=== PATIENT | female | born 1985 | race Caucasian/White ===

== ENCOUNTER 2016-09-29 16:45 | Emergency (ER) | payer OTHER ==
[~2016-09-29] VITALS: Ht 160 cm; Wt 95.3 kg
[~2016-09-29 16:45] MED LIST: CYMBALTA60 MG PO; ENDOCET 5-3251 EACH PO; IBUPROFEN800 MG PO; KEFLEX500 MG PO; MACROBID100 MG PO; NOHOMEMEDS; PRENATABS FA T1 EACH PO; TRAZODONE HCL100 MG PO; ZOLOFT25 MG PO
[2016-09-29] MEDS ORDERED: TAMIFLU75 MG PO (17:54)
[2016-09-29] MEDS ORDERED: AMOXICILLIN875 MG PO (17:54)
[2016-09-29] MEDS ORDERED: IBUPROFEN200 M1 PO (17:55)
[2016-09-29] MEDS ORDERED: MOTRIN800 MG PO (18:20)
[2016-09-29] MEDS ORDERED: FIORICET 50-301 EACH PO (18:20)
[2016-09-29 18:30] VITALS: BP 138/96
[2016-09-30] MEDS ORDERED: FLEXERIL10 MG PO (12:54)
[2016-09-30] MEDS ORDERED: TRAMADOL HCL50 MG PO (12:54)
[2016-09-30] MEDS ORDERED: NAPROSYN500 MG PO (12:54)
== END 2016-09-29 18:31 | disposition home or self-care (01) ==
LOC: EME 16:45
DX: G44.209 Tension-type headache, unspecified, not intractable (principal); J45.909 Unspecified asthma, uncomplicated
CPT/HCPCS: 99281; 99283; J1885

== ENCOUNTER 2016-09-30 09:32 | Emergency (ER) | payer OTHER ==
[~2016-09-30] VITALS: Ht 160 cm; Wt 95.6 kg
[~2016-09-30 09:32] MED LIST changes: +AMOXICILLIN875 MG PO; +FIORICET 50-301 EACH PO; +IBUPROFEN200 M1 PO; +MOTRIN800 MG PO; +TAMIFLU75 MG PO
[2016-09-30] MEDS ORDERED: NAPROSYN500 MG PO (12:54)
[2016-09-30] MEDS ORDERED: TRAMADOL HCL50 MG PO (12:54)
[2016-09-30] MEDS ORDERED: FLEXERIL10 MG PO (12:54)
[2016-09-30 13:05] VITALS: BP 111/73
== END 2016-09-30 13:07 | disposition home or self-care (01) ==
LOC: EME 09:32
DX: R51 Headache (principal); T37.5X5A Adverse effect of antiviral drugs, initial encounter; H73.893 Other specified disorders of tympanic membrane, bilateral; J02.9 Acute pharyngitis, unspecified; R05 Cough
CPT/HCPCS: 99281; 99284